=== PATIENT | male | born 1995 | race Caucasian/White ===

== ENCOUNTER 2019-03-15 08:30 | Outpatient (CLI) | payer BC ==
--- NOTE | 2019-03-15 10:48 | ULT ---
ULTRASOUND ABDOMEN LIMITED: (RIGHT UPPER QUADRANT) DATE: 03/15/19 HISTORY: 23-year-old male with nausea, emesis, and right upper quadrant abdominal pain. FINDINGS: Gallbladder: Normal wall thickness. No gallstones or sludge. No pericholecystic fluid. Common duct: 3 mm. Liver: Diffusely increased parenchymal echogenicity without significant signal dropout of deep weston . This could either be normal or could represent fatty liver. Pancreas: Poorly visualized. Right kidney: Normal. IMPRESSION: 1. No sonographic evidence of cholelithiasis or acute cholecystitis. 2. Questionable hepatic steatosis. 3. Otherwise normal. JN R POS: TPC
== END 2019-03-15 08:31 | disposition home or self-care (01) ==
LOC: BICULT 08:30
PROVIDERS: ATTEND Internal Medicine
DX: R10.11 Right upper quadrant pain (principal); R11.2 Nausea with vomiting, unspecified; K52.9 Noninfective gastroenteritis and colitis, unspecified
CPT/HCPCS: 93975

== ENCOUNTER 2019-03-15 13:42 | Outpatient (CLI) | payer BC ==
[2019-03-15] MEDS ORDERED: Magnevist 469MG/ML 20 ML VIAL ONE (15:38)
--- NOTE | 2019-03-15 16:36 | MRI ---
Brain MRI with and without contrast: 03/15/2019 COMPARISON: 01/24/2016 HISTORY: Seizure, vomiting TECHNIQUE: Multiplanar multisequence MR imaging of the brain obtained with and without contrast using a seizure protocol FINDINGS: The diffusion weighted imaging demonstrates no evidence for acute infarction. Mild mucosal thickening of the left maxillary sinus. Regional bone marrow signal intensity appears wi thin normal limits. No midline shift or mass effect. No ventricular enlargement. Hippocampi demonstrate a symmetric unremarkable appearance. Arterial flow voids at the axial level of the skull base appear grossly unremarkable on the T2-weighted imaging. Postcontrast imaging is unremarkable. IMPRESSION: Unremarkable contrast enhanced brain MRI.
== END 2019-03-15 13:43 | disposition home or self-care (01) ==
LOC: BICMRI 13:42
PROVIDERS: ATTEND Family Medicine
DX: G40.209 Localization-related (focal) (partial) symptomatic epilepsy and epileptic syndromes with complex partial seizures, not intractable, without status epilepticus (principal)
CPT/HCPCS: 70553; A9579

== ENCOUNTER 2020-03-05 00:58 | Emergency (ER) | payer SELFPAY ==
[2020-03-05 01:54] LABS: #Basophils 0.1 thou/uL (0.0-0.2); #Eosinphils 0.2 thou/uL (0.0-0.7); #Lymphocytes 3.3 thou/uL (1.20-3.40); #Monocytes 0.6 thou/uL (0.11-0.59); #Neutrophils 3.5 thou/uL (1.40-6.50); %Basophils 1.4 % (0.0-1.0); %Eosinophils 2.8 % (0.0-10.0); %Lymphocytes 42.4 % (21.0-51.0); %Monocytes 8.1 % (0.0-10.0); %Neutrophils 45.2 % (42.0-75.0); Hemoglobin 15.4 g/dL (14.0-18.0); Mean Corpuscular HGB CONC 34.2 g/dL (32.0-36.0); Mean Corpuscular Hemoglobin 31.3 pg (27.0-31.0); Mean Corpuscular Volume 91.6 fL (78.0-98.0); Mean Platelet Volume 8.7 fL (7.4-10.4); Platelet Count 171 thou/uL (130-400); Red Blood Cell (RBC) Count 4.91 mill/uL (4.70-6.10); White Blood Cell (WBC) Count 7.8 thou/uL (4.8-10.8)
[2020-03-05 02:15] LABS: ALT (SGPT) 282 U/L (8-55); AST (SGOT) 354 U/L (5-34); Albumin 3.7 g/dL (3.5-5.0); Alkaline Phosphatase 123 U/L (40-110); Anion Gap 16 mmol/L (10-20); BUN (Urea Nitrogen) 18 mg/dL (8.9-20.6); Bilirubin, Total 0.7 mg/dL (0.2-1.2); Calc. Creatinine Clearance 0 mL/min (70-130); Calcium 8.5 mg/dL (7.8-10.44); Carbon Dioxide 28 mmol/L (22-29); Chloride 104 mmol/L (98-107); Estimated GFR-MDRD 89; Globulin 2.7 g/dL (2.4-3.5); Glucose 100 mg/dL (70-105); Potassium 3.3 mmol/L (3.5-5.1); Protein, Total 6.4 g/dL (6.0-8.3); Sodium 145 mmol/L (136-145)
[2020-03-05 02:39] LABS: Bilirubin Negative (Negative); Blood, Urine Negative (Negative); Clarity Clear (Clear); Glucose, Urine (Dipstick) Normal (Negative); Ketone, Urine Negative (Negative); Leukocyte Negative Leu/uL (Negative); Nitrite Negative (Negative); Protein, Urine (Dipstick) Negative (Neg-Trace); Urobilinogen Normal mg/dL (Less than 2); pH, Urine 6.5 (5.0-9.0)
[2020-03-05 02:52] LABS: Amphetamine Not Detected (NotDetected); Barbiturates Screen Not Detected (NotDetected); Benzodiazepine Screen Not Detected (NotDetected); Cocaine Metabolite Screen Not Detected (NotDetected); Medtox Control Line Valid? VALID (VALID); Medtox Reader # READER 1; Methadone Not Detected (NotDetected); Methamphetamine Not Detected (NotDetected); Opiate Screen Not Detected (NotDetected); Oxycodone Screen Not Detected (NotDetected); Phencyclidine (PCP) Not Detected (NotDetected); THC/Cannabinoid Screen Not Detected (NotDetected); Tricyclic Screen Not Detected (NotDetected)
[2020-03-05 03:26] LABS: Acetaminophen Less than 6.0 mcg/mL (10.0-30.0); Alcohol 386 mg/dL (Less than 10); Salicylate Less than 8.0 mg/dL (15.0-30.0)
--- NOTE | 2020-03-05 07:59 | RAD ---
Exam: Right knee 4 views: HISTORY: Injury, seizure COMPARISON: None FINDINGS: No evidence for fracture, dislocation, or other significant acute osseous abnormality. IMPRESSION: No significant acute process.
--- NOTE | 2020-03-05 07:59 | RAD ---
Exam: AP pelvis one view: HISTORY: Injury history of seizure COMPARISON: None FINDINGS: No evidence for fracture, dislocation, or other significant acute osseous abnormality. IMPRESSION: No significant acute process.
--- NOTE | 2020-03-05 08:08 | RAD ---
PORTABLE CHEST: History: Injury. Seizure. FINDINGS: Lungs appear clear of infiltrate. Heart and mediastinum unremarkable. Osseous structures appear intac t. IMPRESSION: No acute process. POS: AGW
--- NOTE | 2020-03-05 08:12 | CT ---
PRELIMINARY REPORT/[facility]/EMERGENCY AFTER HOURS PROCEDURE: EXAM: CT Head Without Intravenous Contrast. CLINICAL HISTORY: ER 4... AMS S/P SEIZURE ON TUESDAY. FAMILY REPORTS HX OF EPILEPSY. PT WAS UNABLE TO ORIENT TO SELF, OT HERS, OR PLACE EARLIER TODAY. PER FAMILY PT'S AMS WORSENING SINCE CONCUSSION. TECHNIQUE: Axial computed tomography images of the head/brain without intravenous contrast. COMPARISON: None provided. FINDINGS:The ventricles and subarachnoid spaces are normal. No abnormal areas of attenuation are seen in the brain parenchyma. Normal hedrick- white matter interface. There is no acute intracranial hemorrhage or mass effect. Orbits are negative. On bone windows, no acute finding is seen. Mastoid air cells and middle ears are clear. 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 IMPRESSION: Negative unenhanced CT of the head. ELECTRONICALLY SIGNED BY: Ed Espinal MD Mar 05, 2020 2:04:48 AM LINING CEMENTER This report is intended for review by the ordering physician only, in accordance of law. If you recei ve this report in error, please call [facility] at [phone]. FINAL REPORT CT HEAD: INDICATION: Seizure. IMPRESSION: No acute intracranial abnormality. I am in agreement with the preliminary report issued by [facility]. POS: AGW
--- NOTE | 2020-03-05 08:14 | CT ---
PRELIMINARY REPORT/[facility]/EMERGENCY AFTER HOURS PROCEDURE: EXAM: CT Cervical Spine Without Intravenous Contrast. CLINICAL HISTORY: ER 4... AMS S/P SEIZURE ON TUESDAY. FAMILY REPORTS HX OF EPILEPSY. PT WAS UNABLE TO ORIENT TO SELF, OT HERS, OR PLACE EARLIER TODAY. PER FAMILY PT'S AMS WORSENING SINCE CONCUSSION. TECHNIQUE: Axial computed tomography images of the cervical spine without intravenous contrast. Sagittal and cor onal reformations performed. COMPARISON: None provided. FINDINGS: There are 7 cervical vertebra with mild straightening on the sagittal reformats. The verte bral body heights are maintained. The facets, transverse and spinous processes are intact. Central spinal canal and neuroforamina are patent. The precervical soft tissues are normal. The odontoid lateral mass interval is bilaterally asymmetrical, greater on the left relative to that seen on the right (13/3; 17/400). In addition, there is. Slight right lateral subluxation of the la teral masses of C1 relative to the lateral masses of C2 (19/400). The joint spaces between the later al masses of C1 and C2 are symmetrical in thickness. There is no precervical soft tissue abnormality , and there is no epidural or intraspinal soft tissue abnormality. The atlantooccipital articulation s are normal. IMPRESSION: 1. There is imperfect alignment between the atlas and the C2 element, detailed above. 2. This most likely represents anatomic development of variation. 3. No fractures. COMMENT: If the patient has significant upper cervical pain, then cervical collar and follow-up MRI w ould be suggested. ELECTRONICALLY SIGNED BY: Ed Espinal MD Mar 05, 2020 2:23:13 AM HORTICULTURE/FLORICULTURE TEACHER This report is intended for review by the ordering physician only, in accordance of law. If you recei ve this report in error, please call [facility] at [phone]. FINAL REPORT CT CERVICAL SPINE: No evidence of fracture. Slight asymmetry of the odontoid lateral mass interval which may be congenit al. C1 and C2 alignment is otherwise normal. No evidence of fracture or other acute abnormality. I am in agreement with the preliminary report issued by [facility]. POS: ZAIDA
--- NOTE | 2020-03-05 08:16 | CT ---
PRELIMINARY REPORT/[facility]/EMERGENCY AFTER HOURS PROCEDURE: EXAM: CT Thoracic Spine Without Intravenous Contrast. CLINICAL HISTORY: ER 4... AMS S/P SEIZURE ON TUESDAY. FAMILY REPORTS HX OF EPILEPSY. PT WAS UNABLE TO ORIENT TO SELF, OT HERS, OR PLACE EARLIER TODAY. PER FAMILY PT'S AMS WORSENING SINCE CONCUSSION. TECHNIQUE: Axial computed tomography images of the thoracic spine without intravenous contrast. Sagittal and cor onal reformations performed. CONTRAST: Without COMPARISON: None provided. FINDINGS: There are 12 pairs of ribs. A gentle S-shaped curvature of the thoracic spine is present. Overall there is a normal kyphosis. There is modest wedge-shape to vertebral bodies T12-L1, compati ble with developmental variation. Otherwise the vertebral body heights are maintained. No cortical step-off, fracture line or this subluxation is seen. The transverse and spinous processes are intact. Visualized portions of ribs are normal. IMPRESSION: 1. No acute abnormality. No fracture or subluxation. 2. Mild S-shaped scoliosis. 3. Developmental wedge shape of several adjacent vertebral bodies.. ELECTRONICALLY SIGNED BY: Ed Espinal MD Mar 05, 2020 2:31:16 AM EMERGENCY MEDICAL SERVICE MANAGER This report is intended for review by the ordering physician only, in accordance of law. If you recei ve this report in error, please call [facility] at [phone]. FINAL REPORT CT THORACIC SPINE: Thoracic vertebra maintain normal height and alignment in the sagittal projection. Slight scoliotic c urvature with convexity to the right. No fracture or acute abnormality identified. I am in agreement with the preliminary report issued by [facility]. POS: ZAIDA
== END 2020-03-05 04:12 | disposition home or self-care (01) ==
LOC: ERS 00:58
DX: S06.0X0A Concussion without loss of consciousness, initial encounter (principal); F10.129 Alcohol abuse with intoxication, unspecified; G40.909 Epilepsy, unspecified, not intractable, without status epilepticus; F41.9 Anxiety disorder, unspecified; F32.9 Major depressive disorder, single episode, unspecified; F17.210 Nicotine dependence, cigarettes, uncomplicated; G43.909 Migraine, unspecified, not intractable, without status migrainosus; Z79.899 Other long term (current) drug therapy; X58.XXXA Exposure to other specified factors, initial encounter
CPT/HCPCS: 36415; 70450; 71045; 72125; 72128; 72170; 80053; 80177; 80306; 80307; 81003; 85025

== ENCOUNTER 2020-04-02 21:01 | Inpatient (IN) | payer SELFPAY ==
[2020-04-02] MEDS ORDERED: Lorazepam 2 MG/ML VIAL ONE (21:41)
[2020-04-02 21:42] LABS: #Basophils 0.2 thou/uL (0.0-0.2); #Eosinphils 0.5 thou/uL (0.0-0.7); #Monocytes 0.9 thou/uL (0.11-0.59); #Neutrophils 3.9 thou/uL (1.40-6.50); %Basophils 1.6 % (0.0-1.0); %Eosinophils 5.1 % (0.0-10.0); %Lymphocytes 42.5 % (21.0-51.0); %Monocytes 9.5 % (0.0-10.0); %Neutrophils 41.2 % (42.0-75.0); Hemoglobin 16.4 g/dL (14.0-18.0); Mean Corpuscular HGB CONC 33.5 g/dL (32.0-36.0); Mean Corpuscular Hemoglobin 31.4 pg (27.0-31.0); Mean Corpuscular Volume 93.7 fL (78.0-98.0); Mean Platelet Volume 8.3 fL (7.4-10.4); Platelet Count 311 thou/uL (130-400); RBC Distribution Width 13.3 % (11.5-14.5); Red Blood Cell (RBC) Count 5.24 mill/uL (4.70-6.10); White Blood Cell (WBC) Count 9.4 thou/uL (4.8-10.8)
[2020-04-02] MEDS ORDERED: Multivitamins, Adult 10 ML, Thiamine HCl 100 MG, Folic Acid 1 MG in Dextrose 5 %-0.45 %... IV SCH (22:00)
[2020-04-02 22:05] LABS: ALT (SGPT) 45 U/L (8-55); AST (SGOT) 28 U/L (5-34); Acetaminophen Less than 6.0 mcg/mL (10.0-30.0); Albumin 4.3 g/dL (3.5-5.0); Alcohol 298 mg/dL (Less than 10); Alkaline Phosphatase 91 U/L (40-110); Anion Gap 19 mmol/L (10-20); BUN (Urea Nitrogen) 10 mg/dL (8.9-20.6); Bilirubin, Total 0.3 mg/dL (0.2-1.2); Calc. Creatinine Clearance 0 mL/min (70-130); Calcium 9.1 mg/dL (7.8-10.44); Carbon Dioxide 24 mmol/L (22-29); Chloride 105 mmol/L (98-107); Glucose 88 mg/dL (70-105); Magnesium 2.5 mg/dL (1.6-2.6); Potassium 3.9 mmol/L (3.5-5.1); Protein, Total 7.3 g/dL (6.0-8.3); Salicylate Less than 8.0 mg/dL (15.0-30.0); Sodium 144 mmol/L (136-145)
[2020-04-02] MEDS ORDERED: Magnesium 2 GM/50 ML BAG (IN WATER) ONE (23:01)
[2020-04-02] MEDS ORDERED: Metoclopramide HCl 10 MG/2 ML VIAL ONE (23:02)
[2020-04-02] MEDS ORDERED: diphenhydrAMINE 50 MG/ML VIAL ONE (23:02)
[2020-04-02] MEDS ORDERED: Ketorolac Tromethamine 30 MG/ML VIAL ONE (23:02)
[2020-04-03] MEDS ORDERED: Nicotine 21 MG PATCH TOP SCH (00:15)
[2020-04-03] MEDS ORDERED: Acetaminophen 325 MG TAB PO PRN (00:31)
--- NOTE | 2020-04-03 01:30 | HP ---
REASON FOR ADMISSION: Hallucination and suicidal ideation. Also attempting to detox from alcohol. HISTORY OF PRESENT ILLNESS: This is a 24-year-old male patient who is known to be an alcoholic, presented to the ER reporting hallucination for the past week or 2. He hears members of his family who are not there. He admits that he drank rubbing alcohol approximately a week ago. In a moment of weakness, he does state that he wants to end his life. He does state that he stopped drinking any alcohol a week ago. He does complain of headaches. He did receive IV Benadryl and Toradol. Currently, he is asleep, but easily arousable. Does not appear in distress. PAST MEDICAL HISTORY: 1. Migraines. 2. Asthma. 3. Seizures. SOCIAL HISTORY: He drinks on a daily basis, more than 10 drinks per day. He is a former drug user. He is current smoker, one pack a day. FAMILY HISTORY: Unable to obtain. He is currently very sleepy. REVIEW OF SYSTEMS: Unable to obtain. Currently very sleepy. PHYSICAL EXAMINATION: GENERAL: He is sleepy, easily arousable. VITAL SIGNS: His blood pressure is 105/64, pulse is 84, saturating 96% on room air. HEENT: Head is nontraumatic, normocephalic. Pupils equal, reactive. Extraocular movements are intact. Nonicteric sclerae. Well-injected conjunctivae. Oral mucosa normal. Nasal mucosa normal. NECK: Supple. No adenopathy. No murmur. Thyroid is not palpable. Trachea is midline. No supraclavicular adenopathy. HEART: S1, S2 regular. No murmur. No gallops. No friction rubs. No displacement of PMI. LUNGS: Clear to auscultation bilaterally. No wheezes. No rhonchi. No crackles. Bowel sounds are positive. Nontender abdomen. No hepatosplenomegaly. EXTREMITIES: No lower extremity edema. No cyanosis. NEUROLOGIC: Unable to fully perform. He is moving all 4 extremities. Cranial nerves appear to be intact. LABORATORY DATA: Blood work shows a WBC of 9.4, hemoglobin 16.4, platelets of 311. Sodium 144, potassium 3.9, BUN of 10, creatinine of 1. Urine tox screen shows Tylenol level less than 6, salicylate less than 8. Alcohol level 298. ASSESSMENT/PLAN: This is a 24-year-old male patient who is an alcoholic, presenting with suicidal ideation and high alcohol level, currently not in withdrawal. Maybe, he will go into withdrawal in 24 to 48 hours. Until then, we will monitor him on Med-Surg and we will hydrate him with IV fluids. He did receive a banana bag. He will be on thiamine, folic acid, multivitamin on a daily basis. He will be on IV fluids. We will monitor his electrolytes and when he is stable, consultation with [facility] is warranted for evaluation and placement. Job ID: [id number]
[2020-04-03] MEDS: Sodium Chloride 0.9% 1,000 ML IV SCH ×2 (02:41→13:07)
[2020-04-03 03:47] VITALS: BMI 29.6
[2020-04-03] MEDS: Lorazepam 2 MG/ML VIAL SLOW IVP PRN ×2 (06:13→15:43)
[2020-04-03 08:23] LABS: SARS-CoV-2 MS2 Positive; SARS-CoV-2 N Gene Negative; SARS-CoV-2 S Gene Negative; SARS-CoV-2 by NAA Not Detected (NotDetected); SARS-CoV-2 orf1ab Negative
[2020-04-03] MEDS ORDERED: FLU VACC QS2020-21(6MOS UP)/PF 60 MCG/0.5 ML SYRINGE IM ONE (09:00)
[2020-04-03] MEDS: Folic Acid 1 MG TAB PO SCH (09:22)
[2020-04-03] MEDS: Multivitamin W/ Minerals 1 TAB PO SCH (09:22)
[2020-04-03] MEDS ORDERED: levETIRAcetam 500 MG TAB PO SCH (10:00)
[2020-04-03] MEDS ORDERED: Nicotine 21 MG PATCH TD SCH (10:00)
[2020-04-03] MEDS ORDERED: Ondansetron ODT 4 MG TAB PO PRN (19:52)
[2020-04-03] MEDS: Ondansetron PF 4 MG/2 ML Vial IVP PRN (20:01)
[2020-04-04] MEDS: Lorazepam 2 MG/ML VIAL SLOW IVP PRN (00:10)
[2020-04-04] MEDS: Ondansetron PF 4 MG/2 ML Vial IVP PRN (03:02)
[2020-04-04] MEDS: Sodium Chloride 0.9% 1,000 ML IV SCH (03:03)
[2020-04-04 06:15] LABS: #Basophils 0.1 thou/uL (0.0-0.2); #Eosinphils 0.4 thou/uL (0.0-0.7); #Monocytes 0.8 thou/uL (0.11-0.59); #Neutrophils 4.7 thou/uL (1.40-6.50); %Basophils 1.1 % (0.0-1.0); %Eosinophils 4.5 % (0.0-10.0); %Lymphocytes 25.2 % (21.0-51.0); %Monocytes 10.1 % (0.0-10.0); %Neutrophils 59.1 % (42.0-75.0); Hemoglobin 14.2 g/dL (14.0-18.0); Mean Corpuscular HGB CONC 33.6 g/dL (32.0-36.0); Mean Corpuscular Hemoglobin 31.2 pg (27.0-31.0); Mean Corpuscular Volume 92.9 fL (78.0-98.0); Mean Platelet Volume 8.5 fL (7.4-10.4); Platelet Count 233 thou/uL (130-400); RBC Distribution Width 12.9 % (11.5-14.5); Red Blood Cell (RBC) Count 4.56 mill/uL (4.70-6.10); White Blood Cell (WBC) Count 7.9 thou/uL (4.8-10.8)
[2020-04-04 06:34] LABS: Anion Gap 14 mmol/L (10-20); BUN (Urea Nitrogen) 13 mg/dL (8.9-20.6); Calc. Creatinine Clearance 166 mL/min (70-130); Calcium 7.8 mg/dL (7.8-10.44); Carbon Dioxide 23 mmol/L (22-29); Chloride 107 mmol/L (98-107); Glucose 106 mg/dL (70-105); Potassium 3.5 mmol/L (3.5-5.1); Sodium 140 mmol/L (136-145)
[2020-04-04 07:55] VITALS: TEMP 98.5
[2020-04-04] MEDS: Multivitamin W/ Minerals 1 TAB PO SCH (08:04)
[2020-04-04] MEDS: Folic Acid 1 MG TAB PO SCH (08:04)
[2020-04-04] MEDS ORDERED: levETIRAcetam 500 MG TAB PO SCH (09:00)
[2020-04-04] MEDS ORDERED: Nicotine 21 MG PATCH TD SCH (09:00)
[2020-04-04 11:55] VITALS: BP 139/79
--- NOTE | 2020-04-05 11:26 | EKG ---
Test Reason : Blood Pressure : / mmHG Vent. Rate : 095 BPM Atrial Rate : 095 BPM P-R Int : 140 ms QRS Dur : 090 ms QT Int : 360 ms P-R-T Axes : 042 -08 031 degrees QTc Int : 452 ms Normal sinus rhythm Minimal voltage criteria for LVH, may be normal variant Cannot rule out Anterior infarct , age undetermined Abnormal ECG Confirmed by TEMO THOMSON ([id number]), make up editor LEANNE CARRILLO ([id number]) on 04/05/2020 11:25:43 AM Referred By: Confirmed By:TEMO THOMSON
--- NOTE | 2020-04-06 13:28 | DIS ---
DATE OF ADMISSION: 04/03/2020 DATE OF DISCHARGE: 04/04/2020 DISCHARGE DIAGNOSES: 1. Hallucinations. 2. Alcohol intoxication. 3. Suicidal ideation. 4. History of migraine. 5. History of seizures. 6. History of asthma. DISCHARGE MEDICATIONS: The patient will continue his home medications of; 1. Keppra 1750 mg orally daily. 2. Librium 25 mg orally t.i.d. as needed for alcohol detox. 3. Clonidine 0.1 mg orally twice daily as needed for hypertension. 4. Lorazepam 1 mg q.6 hours as needed for anxiety. 5. Zoloft 50 mg orally daily. HISTORY OF PRESENT ILLNESS AND HOSPITAL COURSE: The patient is a 24-year-old male with past medical history of migraines, seizures, asthma, and alcohol abuse, who was seen in the ER for hallucinations. The patient stated that he wanted to end his life. He admitted to stopping drinking 2 weeks ago, however, his alcohol level was elevated in the ER. The patient was monitored for 24 hours and his condition was stable clinically. Job ID: [id number]
--- NOTE | 2020-04-07 03:40 | PQF ---
CLINICAL DOCUMENTATION CLARIFICATION FORM: Dear : Kylie Tran Date / Time: 04/07/2020 Please exercise your independent, professional judgment in responding to the clarification form. Clinical indicators are provided on the bottom of this form for your review In your clinical opinion based on clinical findings below, can you please identify the etiology of Hallucination if: Please check appropriate box(es): [ > ] Alcohol-Induced Disorders [ ] Psychosis, please specify: [ ] Other diagnosis, please specify [ ] Unable to determine Physician Signature: Date/Time: For continuity of documentation, please document condition throughout progress notes and discharge summary. Thank You. To be completed by CDI/Coding staff for physician review: Present Clinical Indicators - Signs / Symptoms / Labs Results and Location in Medical Record [X] Plasma Alcohol 298 Laboratory 04/03 [X] BP 95/58, Pulse 77, Resp 16, Temp 97.7 Vital sign 04/03 [X] Hallucination and suicidal ideation. Also attempting to detox from alcohol H&P p1 04/03 Dr Hernandez [X] He drinks on daily basis, more than 10 drinks per day H&P p1 04/03 Dr Hernandez [X] pt is an alcoholic, presenting with suicidal ideation and high alcohol level H&P p2 04/03 Dr Hernandez Present Risk Factors Results and Location in Medical Record [X] Seizures H&P p1 04/03 Dr Hernandez [X] Migraine H&P p1 04/03 Dr Hernandez [X] Smoker H&P p1 04/03 Dr Hernandez Present Treatments Results and Location in Medical Record [X] IV Ativan 2 mg MAR 04/02 [X] IV Magnesium sulfate 2 gm JUL 11 [X] IV Multivitamins 10ml/Thimaine 100 mg/ Folic aidc 1mg JUL 11 [X] IVF NS1L JUL 11 [X] Thiamine HCL 100 mg JUL 11 [X] Banana Bag IV HP 04/03 CDS/Mock Up Builder Signature: Naomi Goodwin Phone #: ext [phone] Date/Time: 04/07/2020 This is a permanent part of the Medical Record [facility]
== END 2020-04-04 11:04 | DRG 897 ==
LOC: ERS 21:01 → T4-A 04-03 01:22
PROVIDERS: ADMIT Internal Medicine; ATTEND Internal Medicine
PROC: HZ2ZZZZ Detoxification Services for Substance Abuse Treatment (ICD-10-PCS; principal; 2020-04-03)
DX: F10.251 Alcohol dependence with alcohol-induced psychotic disorder with hallucinations (principal); R45.851 Suicidal ideations; F10.229 Alcohol dependence with intoxication, unspecified; Y90.8 Blood alcohol level of 240 mg/100 ml or more; G43.909 Migraine, unspecified, not intractable, without status migrainosus; Z23 Encounter for immunization; J45.909 Unspecified asthma, uncomplicated; G40.909 Epilepsy, unspecified, not intractable, without status epilepticus; Z20.828 Contact with and (suspected) exposure to other viral communicable diseases; F17.210 Nicotine dependence, cigarettes, uncomplicated; Z79.899 Other long term (current) drug therapy
CPT/HCPCS: 36415; 80048; 80053; 80307; 83735; 84443; 85025; 87635; 93005; J1200; J1885; J2060; J2405; J2765; J3411; J3475; J7042; Q0162; U0003

== ENCOUNTER 2020-07-05 17:42 | Inpatient (IN) | payer SELFPAY ==
[2020-07-05 19:12] LABS: Hemoglobin 10.4 g/dL (14.0-18.0); Mean Corpuscular HGB CONC 32.7 g/dL (32.0-36.0); Mean Corpuscular Hemoglobin 26.9 pg (27.0-31.0); Mean Corpuscular Volume 82.3 fL (78.0-98.0); Mean Platelet Volume 5.7 fL (7.4-10.4); Platelet Count 147 thou/uL (130-400); RBC Distribution Width 22.4 % (11.5-14.5); Red Blood Cell (RBC) Count 3.87 mill/uL (4.70-6.10); White Blood Cell (WBC) Count 8.4 thou/uL (4.8-10.8)
[2020-07-05 19:16] LABS: ALT (SGPT) 94 U/L (8-55); AST (SGOT) 246 U/L (5-34); Albumin 2.7 g/dL (3.5-5.0); Alkaline Phosphatase 245 U/L (40-110); Anion Gap 15 mmol/L (10-20); BUN (Urea Nitrogen) 4 mg/dL (8.9-20.6); Calc. Creatinine Clearance 0 mL/min (70-130); Calcium 7.5 mg/dL (7.8-10.44); Carbon Dioxide 23 mmol/L (22-29); Chloride 104 mmol/L (98-107); Globulin 3.1 g/dL (2.4-3.5); Glucose 121 mg/dL (70-105); Protein, Total 5.8 g/dL (6.0-8.3); Sodium 139 mmol/L (136-145)
[2020-07-05 19:23] LABS: Potassium 2.9 mmol/L (3.5-5.1)
[2020-07-05 19:30] LABS: Anisocytosis MODERATE=16-30 cells (100X) (0-5/hpf); Band 3 % (5-11); Eosinophils 2 % (0-10); Hypochromia SLIGHT = 6-15 cells (100X) (0-5/hpf); Lymphocytes 26 % (21-51); MDiff Complete? YES; Monocytes 4 % (0-10); Neutrophil 63 % (42-75); Platelet Morphology Comment Appears Adequate; Polychromasia SLIGHT = 2-3 cells (100X) (0-2/hpf); Reactive Lymphocytes 1 % (0-10); Target Cells SLIGHT = 2-5 cells (100X) (0-1/hpf); Tear Drops SLIGHT = 2-5 cells (100X) (0-1/hpf)
[2020-07-05] MEDS ORDERED: Multivitamins, Adult 10 ML, Thiamine HCl 100 MG, Folic Acid 1 MG in Dextrose 5 %-0.45 %... IV SCH (20:00)
[2020-07-05 20:36] LABS: AST (SGOT) 243 U/L (5-34); Albumin 2.5 g/dL (3.5-5.0); Alcohol 220 mg/dL (Less than 10); Alkaline Phosphatase 245 U/L (40-110); Bilirubin, Direct 3.2 mg/dL (0.1-0.3); Bilirubin, Total 3.7 mg/dL (0.2-1.2); Protein, Total 7.1 g/dL (6.0-8.3)
[2020-07-05 21:09] LABS: ALT (SGPT) 95 U/L (8-55)
[2020-07-05] MEDS ORDERED: Albuterol Sulfate 2.5 mg/3 ml Neb NEB PRN (21:43)
[2020-07-05] MEDS ORDERED: Magnesium Oxide 400 MG TAB PO SCH (22:00)
[2020-07-05] MEDS ORDERED: Potassium Chloride 20 MEQ in Premix Bag 1 BAG IVPB SCH (22:00)
[2020-07-05] MEDS ORDERED: Potassium Chloride 20 MEQ TAB PO SCH (22:00)
[2020-07-06 00:18] VITALS: BMI 32.7
[2020-07-06] MEDS ORDERED: Diazepam 5 MG TAB PO PRN (03:00)
[2020-07-06] MEDS ORDERED: Diazepam 5 MG TAB PO SCH (03:15)
[2020-07-06 04:24] LABS: INR-International Normal Ratio 1.2; PTT 36.8 sec (22.9-36.1); Prothrombin Time 15.8 sec (12.0-14.7)
[2020-07-06 04:40] LABS: ALT (SGPT) 84 U/L (8-55); AST (SGOT) 216 U/L (5-34); Albumin 2.4 g/dL (3.5-5.0); Alkaline Phosphatase 215 U/L (40-110); Anion Gap 12 mmol/L (10-20); BUN (Urea Nitrogen) 4 mg/dL (8.9-20.6); Bilirubin, Total 3.8 mg/dL (0.2-1.2); Calc. Creatinine Clearance 211 mL/min (70-130); Calcium 7.3 mg/dL (7.8-10.44); Carbon Dioxide 23 mmol/L (22-29); Chloride 108 mmol/L (98-107); Globulin 2.6 g/dL (2.4-3.5); Glucose 85 mg/dL (70-105); Magnesium 1.8 mg/dL (1.6-2.6); Potassium 3.2 mmol/L (3.5-5.1); Sodium 140 mmol/L (136-145)
[2020-07-06 04:46] LABS: SARS-CoV-2 PCR by NAA Not Detected (NotDetected)
[2020-07-06 05:12] LABS: Eosinophils 5 % (0-10); Hemoglobin 9.4 g/dL (14.0-18.0); Lymphocytes 29 % (21-51); MDiff Complete? YES; Mean Corpuscular HGB CONC 33.8 g/dL (32.0-36.0); Mean Corpuscular Hemoglobin 27.7 pg (27.0-31.0); Mean Platelet Volume 5.6 fL (7.4-10.4); Monocytes 2 % (0-10); Neutrophil 64 % (42-75); Platelet Count 142 thou/uL (130-400); Platelet Morphology Comment Appears Adequate; RBC Distribution Width 22.6 % (11.5-14.5); Red Blood Cell (RBC) Count 3.38 mill/uL (4.70-6.10); White Blood Cell (WBC) Count 7.2 thou/uL (4.8-10.8)
[2020-07-06] MEDS ORDERED: Potassium Chloride 20 MEQ TAB PO SCH ×2 (07:15→10:00)
[2020-07-06] MEDS: levETIRAcetam 500 MG TAB PO SCH (07:56)
[2020-07-06] MEDS: Multivitamin W/ Minerals 1 TAB PO SCH (07:56)
[2020-07-06] MEDS: Folic Acid 1 MG TAB PO SCH (07:56)
[2020-07-06] MEDS: Ondansetron PF 4 MG/2 ML Vial IVP PRN ×2 (07:57→13:32)
[2020-07-06] MEDS ORDERED: levETIRAcetam 500 mg/5 ml Oral Solution PO SCH (09:00)
[2020-07-06] MEDS ORDERED: Multivitamins, Adult 10 ML, Thiamine HCl 100 MG, Folic Acid 1 MG in Dextrose 5 %-0.45 %... IV SCH (09:00)
[2020-07-06] MEDS: Acetaminophen 325 MG TAB PO PRN (18:04)
[2020-07-06] MEDS: hydrOXYzine Pamoate 25 mg Capsule PO SCH (20:24)
[2020-07-06] MEDS: traZODone HCl 50 MG TAB PO SCH (20:24)
[2020-07-06] MEDS ORDERED: FLU VACC QS2020-21(6MOS UP)/PF 60 MCG/0.5 ML SYRINGE IM ONE (21:00)
[2020-07-07] MEDS: Ondansetron PF 4 MG/2 ML Vial IVP PRN ×2 (03:48→20:05)
[2020-07-07] MEDS ORDERED: Diazepam 5 MG TAB PO PRN (04:00)
[2020-07-07 06:23] LABS: Hemoglobin 10.5 g/dL (14.0-18.0); Mean Corpuscular HGB CONC 32.9 g/dL (32.0-36.0); Mean Corpuscular Hemoglobin 27.8 pg (27.0-31.0); Mean Corpuscular Volume 84.5 fL (78.0-98.0); RBC Distribution Width 23.2 % (11.5-14.5); Red Blood Cell (RBC) Count 3.76 mill/uL (4.70-6.10)
[2020-07-07 06:34] LABS: ALT (SGPT) 91 U/L (8-55); AST (SGOT) 239 U/L (5-34); Albumin 2.6 g/dL (3.5-5.0); Alkaline Phosphatase 227 U/L (40-110); Anion Gap 12 mmol/L (10-20); BUN (Urea Nitrogen) Less than 4 mg/dL (8.9-20.6); Calc. Creatinine Clearance 189 mL/min (70-130); Calcium 7.7 mg/dL (7.8-10.44); Carbon Dioxide 27 mmol/L (22-29); Chloride 105 mmol/L (98-107); Globulin 2.9 g/dL (2.4-3.5); Glucose 96 mg/dL (70-105); Iron 116 ug/dL (65-175); Iron Binding Capacity, Total 130 mcg/dL (261-462); Magnesium 1.6 mg/dL (1.6-2.6); Potassium 3.1 mmol/L (3.5-5.1); Protein, Total 5.5 g/dL (6.0-8.3); Sodium 141 mmol/L (136-145)
[2020-07-07 06:38] LABS: #Basophils 0.1 thou/uL (0.0-0.2); #Eosinphils 0.2 thou/uL (0.0-0.7); #Lymphocytes 2.8 thou/uL (1.20-3.40); #Monocytes 0.6 thou/uL (0.11-0.59); #Neutrophils 5.6 thou/uL (1.40-6.50); %Basophils 0.7 % (0.0-1.0); %Eosinophils 1.9 % (0.0-10.0); %Lymphocytes 30.3 % (21.0-51.0); %Monocytes 6.2 % (0.0-10.0); %Neutrophils 60.9 % (42.0-75.0); Hypochromia SLIGHT = 6-15 cells (100X) (0-5/hpf); Lymphocytes 27 % (21-51); MDiff Complete? YES; Mean Platelet Volume 6.1 fL (7.4-10.4); Monocytes 13 % (0-10); Neutrophil 59 % (42-75); Platelet Count 142 thou/uL (130-400); Platelet Morphology Comment Appears Adequate; Reactive Lymphocytes 1 % (0-10); Target Cells SLIGHT = 2-5 cells (100X) (0-1/hpf); White Blood Cell (WBC) Count 9.2 thou/uL (4.8-10.8)
[2020-07-07 07:05] LABS: HBCM Index 0.08 S/CO (0-0.79); HBSAg Index 0.25 S/CO (0-0.99); Hep A IgM AB Non-Reactive (NonReactive); Hep A IgM S/CO 0.15 S/CO (0-0.79); Hep B Surf Ag Non-Reactive S/CO (NonReactive); Hep C IgG Ab Non-Reactive (NonReactive); Hepatitis B Core IgM Abs Non-Reactive (NonReactive)
[2020-07-07 07:28] LABS: Ferritin 2227.45 ng/mL (22-322)
[2020-07-07] MEDS: hydrOXYzine Pamoate 25 mg Capsule PO SCH ×3 (08:59→20:10)
[2020-07-07] MEDS: Multivitamin W/ Minerals 1 TAB PO SCH (08:59)
[2020-07-07] MEDS ORDERED: traZODone HCl 50 MG TAB PO SCH (09:00)
[2020-07-07] MEDS: Magnesium Oxide 400 MG TAB PO SCH (09:00)
[2020-07-07] MEDS: levETIRAcetam 500 MG TAB PO SCH (09:00)
[2020-07-07] MEDS: Thiamine 100 MG TAB PO SCH (09:00)
[2020-07-07] MEDS: Folic Acid 1 MG TAB PO SCH (09:01)
[2020-07-07] MEDS: Acetaminophen 325 MG TAB PO PRN (09:05)
[2020-07-07] MEDS: 1/2 NS w/KCL 20 mEq 1,000 ML IV SCH ×2 (10:23→21:38)
[2020-07-07] MEDS: Loperamide HCl 2 MG CAP PO PRN ×2 (15:52→20:11)
[2020-07-07] MEDS: traZODone HCl 50 MG TAB PO SCH (20:10)
[2020-07-08 06:51] LABS: Hemoglobin 9.3 g/dL (14.0-18.0); Mean Corpuscular HGB CONC 33.3 g/dL (32.0-36.0); Mean Corpuscular Hemoglobin 28.4 pg (27.0-31.0); Mean Corpuscular Volume 85.3 fL (78.0-98.0); Mean Platelet Volume 11.4 fL (7.4-10.4); Platelet Count 143 thou/uL (130-400); RBC Distribution Width 23.7 % (11.5-14.5); Red Blood Cell (RBC) Count 3.27 mill/uL (4.70-6.10); White Blood Cell (WBC) Count 7.8 thou/uL (4.8-10.8)
[2020-07-08 07:16] LABS: ALT (SGPT) 81 U/L (8-55); AST (SGOT) 190 U/L (5-34); Albumin 2.4 g/dL (3.5-5.0); Alkaline Phosphatase 203 U/L (40-110); Anion Gap 10 mmol/L (10-20); BUN (Urea Nitrogen) Less than 4 mg/dL (8.9-20.6); Bilirubin, Total 4.2 mg/dL (0.2-1.2); Calc. Creatinine Clearance 193 mL/min (70-130); Calcium 7.4 mg/dL (7.8-10.44); Carbon Dioxide 25 mmol/L (22-29); Chloride 108 mmol/L (98-107); Globulin 2.7 g/dL (2.4-3.5); Glucose 94 mg/dL (70-105); Magnesium 1.7 mg/dL (1.6-2.6); Potassium 3.3 mmol/L (3.5-5.1); Protein, Total 5.1 g/dL (6.0-8.3); Sodium 140 mmol/L (136-145)
[2020-07-08] MEDS: levETIRAcetam 500 MG TAB PO SCH (08:06)
[2020-07-08] MEDS: Multivitamin W/ Minerals 1 TAB PO SCH (08:06)
[2020-07-08] MEDS: Magnesium Oxide 400 MG TAB PO SCH (08:06)
[2020-07-08] MEDS: hydrOXYzine Pamoate 25 mg Capsule PO SCH ×3 (08:06→21:19)
[2020-07-08] MEDS: Folic Acid 1 MG TAB PO SCH (08:07)
[2020-07-08] MEDS: Thiamine 100 MG TAB PO SCH (08:07)
[2020-07-08] MEDS: Loperamide HCl 2 MG CAP PO PRN ×3 (08:08→21:19)
[2020-07-08 08:52] LABS: Band 4 % (5-11); Eosinophils 5 % (0-10); Hypochromia MODERATE=16-30 cells (100X) (0-5/hpf); Lymphocytes 22 % (21-51); MDiff Complete? YES; Monocytes 7 % (0-10); Neutrophil 61 % (42-75); Platelet Morphology Comment Appears Adequate; Polychromasia MODERATE = 3-4 cells (100X) (0-2/hpf); Reactive Lymphocytes 1 % (0-10); Schistocytes SLIGHT = 2-5 cells (100X) (0-1/hpf); Target Cells MODERATE= 6-15 cells (100X) (0-1/hpf); Tear Drops SLIGHT = 2-5 cells (100X) (0-1/hpf)
[2020-07-08] MEDS: 1/2 NS w/KCL 20 mEq 1,000 ML IV SCH (12:07)
[2020-07-08] MEDS: traZODone HCl 50 MG TAB PO SCH (21:18)
[2020-07-09] MEDS: 1/2 NS w/KCL 20 mEq 1,000 ML IV SCH (01:48)
[2020-07-09 07:46] VITALS: BP 107/69; TEMP 98.1
[2020-07-09] MEDS: hydrOXYzine Pamoate 25 mg Capsule PO SCH (08:17)
[2020-07-09] MEDS: Folic Acid 1 MG TAB PO SCH (08:18)
[2020-07-09] MEDS: Multivitamin W/ Minerals 1 TAB PO SCH (08:18)
[2020-07-09] MEDS: Magnesium Oxide 400 MG TAB PO SCH (08:18)
[2020-07-09] MEDS: Thiamine 100 MG TAB PO SCH (08:18)
[2020-07-09] MEDS: levETIRAcetam 500 MG TAB PO SCH (08:18)
[2020-07-09] MEDS: Loperamide HCl 2 MG CAP PO PRN (08:23)
[2020-07-11 15:53] LABS: ANA Symphony (Qualitative) Negative (Negative); ANA Symphony (Quantitative) 0.2 Ratio (< 0.7 Negative); EliA Vaculitis New Method **** NEW METHOD ****; Mitochondrial Ab 1.1 U/mL (<4 Negative); dsDNA IgG Antibody 0.8 IU/mL (<10 Negative)
== END 2020-07-09 15:17 | disposition home or self-care (01) | DRG 432 ==
LOC: ERS 17:42 → T4-B 20:26
PROVIDERS: ADMIT Internal Medicine; ATTEND Internal Medicine
DX: K70.10 Alcoholic hepatitis without ascites (principal); K85.90 Acute pancreatitis without necrosis or infection, unspecified; F10.10 Alcohol abuse, uncomplicated; E87.6 Hypokalemia; G40.909 Epilepsy, unspecified, not intractable, without status epilepticus; F41.9 Anxiety disorder, unspecified; F32.9 Major depressive disorder, single episode, unspecified; G43.909 Migraine, unspecified, not intractable, without status migrainosus; Z98.890 Other specified postprocedural states; Z79.899 Other long term (current) drug therapy; Z79.891 Long term (current) use of opiate analgesic; J45.909 Unspecified asthma, uncomplicated; E88.09 Other disorders of plasma-protein metabolism, not elsewhere classified; R74.8 Abnormal levels of other serum enzymes
CPT/HCPCS: 36415; 71045; 76705; 80053; 80074; 80307; 81256; 82103; 82390; 82728; 83516; 83540; 83550; 83690; 83735; 83880; 84484; 85025; 85610; 85730; 86038; 86225; 87045; 87046; 87427; 87449; 87635; 90471; 90662; 93005; 96365; 96366; G0008; J2405; J3411; J3480; J7042; Q0177; U0003; U0005

== ENCOUNTER 2021-01-19 21:53 | Emergency (ER) | payer OTHER, SELFPAY ==
[~2021-01-19 21:53] MED LIST: Iopamidol-370 76% 500 ML 1 ML ONE
[2021-01-19] MEDS ORDERED: Fentanyl 100 MCG/2 ML VIAL ONE (22:12)
[2021-01-19] MEDS ORDERED: Boostrix 0.5 ML (Tdap) VIAL ONE (22:12)
[2021-01-19 22:55] LABS: ALT (SGPT) 43 U/L (8-55); AST (SGOT) 57 U/L (5-34); Albumin 4.6 g/dL (3.5-5.0); Alkaline Phosphatase 168 U/L (40-110); Anion Gap 18 mmol/L (10-20); BUN (Urea Nitrogen) 10 mg/dL (8.9-20.6); Bilirubin, Total 1.1 mg/dL (0.2-1.2); Calc. Creatinine Clearance 0 mL/min (70-130); Calcium 9.3 mg/dL (7.8-10.44); Carbon Dioxide 20 mmol/L (22-29); Chloride 106 mmol/L (98-107); Globulin 3.1 g/dL (2.4-3.5); Glucose 91 mg/dL (70-105); Potassium 3.9 mmol/L (3.5-5.1); Protein, Total 7.7 g/dL (6.0-8.3); Sodium 140 mmol/L (136-145)
[2021-01-19 23:11] LABS: #Basophils 0.2 thou/uL (0.0-0.2); #Eosinphils 0.3 thou/uL (0.0-0.7); #Lymphocytes 4.7 thou/uL (1.20-3.40); #Monocytes 0.7 thou/uL (0.11-0.59); #Neutrophils 5.7 thou/uL (1.40-6.50); %Basophils 1.5 % (0.0-1.0); %Eosinophils 2.7 % (0.0-10.0); %Lymphocytes 40.4 % (21.0-51.0); %Monocytes 6.2 % (0.0-10.0); %Neutrophils 49.2 % (42.0-75.0); Band 2 % (5-11); Eosinophils 2 % (0-10); Hemoglobin 14.3 g/dL (14.0-18.0); Lymphocytes 32 % (21-51); MDiff Complete? YES; Mean Corpuscular HGB CONC 32.7 g/dL (32.0-36.0); Mean Corpuscular Hemoglobin 24.1 pg (27.0-31.0); Mean Corpuscular Volume 73.6 fL (78.0-98.0); Mean Platelet Volume 5.9 fL (7.4-10.4); Microcytosis SLIGHT = 6-15 cells (100X) (0-5/hpf); Monocytes 2 % (0-10); Neutrophil 54 % (42-75); Ovalocytes SLIGHT = 2-5 cells (100X) (0-1/hpf); Platelet Count 229 thou/uL (130-400); Platelet Morphology Comment Appears Adequate; RBC Distribution Width 17.2 % (11.5-14.5); Reactive Lymphocytes 5 % (0-10); Red Blood Cell (RBC) Count 5.94 mill/uL (4.70-6.10); Tear Drops SLIGHT = 2-5 cells (100X) (0-1/hpf); White Blood Cell (WBC) Count 11.5 thou/uL (4.8-10.8)
[2021-01-19 23:41] LABS: PTT 28.9 sec (22.9-36.1); Prothrombin Time 14.7 sec (12.0-14.7)
[2021-01-19 23:42] LABS: INR-International Normal Ratio 1.1
[2021-01-19] MEDS ORDERED: HYDROcodone/Acetaminophen 5/325 mg Tablet ONE (23:44)
[2021-01-19] MEDS ORDERED: Ketorolac Tromethamine 30 MG/ML VIAL ONE (23:44)
== END 2021-01-20 00:40 | disposition home or self-care (01) ==
LOC: ERS 21:53
DX: S80.01XA Contusion of right knee, initial encounter (principal); S40.811A Abrasion of right upper arm, initial encounter; V28.9XXA Unspecified motorcycle rider injured in noncollision transport accident in traffic accident, initial encounter
CPT/HCPCS: 36415; 70450; 71045; 71260; 72125; 72170; 74177; 80053; 85025; 85610; 85730; 90471; 90715; 96365; 96375; J0690; J1885; J3010; Q9967

== ENCOUNTER 2021-02-11 00:15 | Inpatient (IN) | payer SELFPAY ==
[2021-02-11 00:39] LABS: #Basophils 0.1 thou/uL (0.0-0.2); #Eosinphils 0.4 thou/uL (0.0-0.7); #Lymphocytes 2.4 thou/uL (1.20-3.40); #Monocytes 1.2 thou/uL (0.11-0.59); #Neutrophils 9.8 thou/uL (1.40-6.50); %Basophils 0.7 % (0.0-1.0); %Eosinophils 2.9 % (0.0-10.0); %Lymphocytes 17.3 % (21.0-51.0); %Monocytes 8.5 % (0.0-10.0); %Neutrophils 70.7 % (42.0-75.0); Hemoglobin 13.3 g/dL (14.0-18.0); Mean Corpuscular HGB CONC 33.8 g/dL (32.0-36.0); Mean Platelet Volume 11.4 fL (7.4-10.4); Platelet Count 215 thou/uL (130-400); RBC Distribution Width 15.9 % (11.5-14.5); Red Blood Cell (RBC) Count 5.31 mill/uL (4.70-6.10); White Blood Cell (WBC) Count 13.9 thou/uL (4.8-10.8)
[2021-02-11 00:56] LABS: ALT (SGPT) 54 U/L (8-55); AST (SGOT) 52 U/L (5-34); Albumin 4.7 g/dL (3.5-5.0); Alkaline Phosphatase 179 U/L (40-110); Anion Gap 16 mmol/L (10-20); BUN (Urea Nitrogen) 14 mg/dL (8.9-20.6); Bilirubin, Total 1.1 mg/dL (0.2-1.2); Calc. Creatinine Clearance 0 mL/min (70-130); Carbon Dioxide 26 mmol/L (22-29); Chloride 101 mmol/L (98-107); Globulin 3.2 g/dL (2.4-3.5); Glucose 89 mg/dL (70-105); Potassium 4.1 mmol/L (3.5-5.1); Protein, Total 7.9 g/dL (6.0-8.3); Sodium 139 mmol/L (136-145)
[2021-02-11] MEDS ORDERED: Morphine 4 MG/ML VIAL ONE (01:15)
[2021-02-11] MEDS ORDERED: VANCOMYCIN 2 GRAM/400 ML BAG 2 GM in Premix Bag 1 BAG IVPB SCH (01:15)
[2021-02-11] MEDS ORDERED: Cefepime 2 GM VIAL ONE (01:15)
[2021-02-11] MEDS ORDERED: Ondansetron PF 4 MG/2 ML Vial ONE (01:15)
[2021-02-11 05:06] VITALS: BMI 31.8
[2021-02-11] MEDS ORDERED: Ondansetron PF 4 MG/2 ML Vial IVP PRN (05:27)
[2021-02-11] MEDS ORDERED: Acetaminophen 325 MG TAB PO PRN (05:27)
[2021-02-11] MEDS ORDERED: Acetaminophen 650 MG Suppository PR PRN (05:27)
[2021-02-11] MEDS ORDERED: Ondansetron ODT 4 MG TAB PO PRN (05:27)
[2021-02-11] MEDS ORDERED: FLU VACC QS2021-22(6MOS UP)/PF 60 MCG/0.5 ML SYRINGE IM ONE (09:00)
[2021-02-11] MEDS: Enoxaparin Sodium 40 MG/0.4 ML SYRINGE SC SCH (09:16)
[2021-02-11] MEDS ORDERED: levETIRAcetam 500 MG TAB PO SCH (09:45)
[2021-02-11] MEDS ORDERED: Nicotine 14 MG PATCH TD SCH (10:00)
[2021-02-11] MEDS ORDERED: Ibuprofen 800 MG TAB PO PRN (10:01)
[2021-02-11] MEDS: Acetaminophen 325 MG TAB PO SCH ×4 (10:50→23:24)
[2021-02-11] MEDS ORDERED: Acetaminophen/Codeine 30-300mg Tablet PO PRN (11:14)
[2021-02-11 14:04] LABS: SARS-CoV-2 PCR by NAA Not Detected (NotDetected)
[2021-02-11] MEDS: Acetaminophen/Codeine 30-300mg Tablet PO PRN ×2 (14:27→20:38)
[2021-02-11] MEDS: Nicotine 21 MG PATCH TOP SCH (14:27)
[2021-02-11] MEDS: Cefepime 2 GM in Sodium Chloride 0.9% 100 ML IVPB SCH (14:28)
[2021-02-11] MEDS: Vancomycin 1.5 GRAM/300 ML BAG 1.5 GM in Premix Bag 1 BAG IVPB SCH (14:29)
[2021-02-12] MEDS: Cefepime 2 GM in Sodium Chloride 0.9% 100 ML IVPB SCH ×3 (01:30→14:55)
[2021-02-12] MEDS: Vancomycin 1.5 GRAM/300 ML BAG 1.5 GM in Premix Bag 1 BAG IVPB SCH ×2 (02:07→13:01)
[2021-02-12] MEDS: Acetaminophen 325 MG TAB PO SCH ×6 (03:06→22:46)
[2021-02-12] MEDS: Acetaminophen/Codeine 30-300mg Tablet PO PRN ×3 (05:57→18:10)
[2021-02-12 06:05] LABS: #Basophils 0.1 thou/uL (0.0-0.2); #Eosinphils 0.6 thou/uL (0.0-0.7); #Lymphocytes 1.7 thou/uL (1.20-3.40); #Neutrophils 7.5 thou/uL (1.40-6.50); %Basophils 0.5 % (0.0-1.0); %Eosinophils 5.7 % (0.0-10.0); %Lymphocytes 15.5 % (21.0-51.0); %Monocytes 9.5 % (0.0-10.0); %Neutrophils 68.8 % (42.0-75.0); Hemoglobin 11.8 g/dL (14.0-18.0); Mean Corpuscular Volume 75.1 fL (78.0-98.0); Mean Platelet Volume 11.1 fL (7.4-10.4); Platelet Count 178 thou/uL (130-400); RBC Distribution Width 15.5 % (11.5-14.5); Red Blood Cell (RBC) Count 4.89 mill/uL (4.70-6.10); White Blood Cell (WBC) Count 10.8 thou/uL (4.8-10.8)
[2021-02-12 06:22] LABS: Anion Gap 13 mmol/L (10-20); BUN (Urea Nitrogen) 15 mg/dL (8.9-20.6); Calc. Creatinine Clearance 167 mL/min (70-130); Carbon Dioxide 26 mmol/L (22-29); Chloride 105 mmol/L (98-107); Glucose 118 mg/dL (70-105); Potassium 4.4 mmol/L (3.5-5.1); Sodium 140 mmol/L (136-145)
[2021-02-12] MEDS: Enoxaparin Sodium 40 MG/0.4 ML SYRINGE SC SCH (09:34)
[2021-02-12] MEDS: levETIRAcetam 500 MG TAB PO SCH (09:34)
[2021-02-12 13:38] LABS: Vancomycin, Trough 11.3 ug/mL
[2021-02-12] MEDS: Nicotine 21 MG PATCH TOP SCH (14:54)
[2021-02-13] MEDS: Cefepime 2 GM in Sodium Chloride 0.9% 100 ML IVPB SCH ×2 (01:34→14:10)
[2021-02-13] MEDS: Vancomycin 1.5 GRAM/300 ML BAG 1.5 GM in Premix Bag 1 BAG IVPB SCH ×2 (02:10→14:08)
[2021-02-13] MEDS: Acetaminophen 325 MG TAB PO SCH ×5 (03:05→22:42)
[2021-02-13] MEDS: levETIRAcetam 500 MG TAB PO SCH (08:30)
[2021-02-13] MEDS: Enoxaparin Sodium 40 MG/0.4 ML SYRINGE SC SCH (08:32)
[2021-02-13] MEDS ORDERED: Famotidine 20 MG TAB PO SCH (10:00)
[2021-02-13] MEDS: Nicotine 21 MG PATCH TOP SCH (14:06)
[2021-02-13] MEDS: Famotidine 20 MG TAB PO SCH (20:43)
[2021-02-14] MEDS: Cefepime 2 GM in Sodium Chloride 0.9% 100 ML IVPB SCH ×2 (02:07→13:51)
[2021-02-14] MEDS: Vancomycin 1.5 GRAM/300 ML BAG 1.5 GM in Premix Bag 1 BAG IVPB SCH ×3 (02:08→17:48)
[2021-02-14 06:05] LABS: #Basophils 0.1 thou/uL (0.0-0.2); #Eosinphils 0.6 thou/uL (0.0-0.7); #Monocytes 1.2 thou/uL (0.11-0.59); %Eosinophils 5.7 % (0.0-10.0); %Monocytes 11.2 % (0.0-10.0); %Neutrophils 55.1 % (42.0-75.0); Hemoglobin 11.9 g/dL (14.0-18.0); Mean Corpuscular HGB CONC 31.4 g/dL (32.0-36.0); Mean Corpuscular Hemoglobin 23.7 pg (27.0-31.0); Mean Corpuscular Volume 75.5 fL (78.0-98.0); Mean Platelet Volume 11.3 fL (7.4-10.4); Platelet Count 201 thou/uL (130-400); RBC Distribution Width 15.3 % (11.5-14.5); Red Blood Cell (RBC) Count 5.01 mill/uL (4.70-6.10)
[2021-02-14] MEDS: Acetaminophen 325 MG TAB PO SCH ×6 (08:50→23:05)
[2021-02-14] MEDS: Enoxaparin Sodium 40 MG/0.4 ML SYRINGE SC SCH (09:15)
[2021-02-14] MEDS: levETIRAcetam 500 MG TAB PO SCH (09:16)
[2021-02-14] MEDS: Famotidine 20 MG TAB PO SCH ×2 (09:17→20:22)
[2021-02-14] MEDS: Acetaminophen/Codeine 30-300mg Tablet PO PRN ×2 (13:51→21:35)
[2021-02-14] MEDS: Nicotine 21 MG PATCH TOP SCH (14:22)
[2021-02-15 01:12] LABS: Vancomycin, Trough 22.6 ug/mL
[2021-02-15] MEDS: Cefepime 2 GM in Sodium Chloride 0.9% 100 ML IVPB SCH ×2 (02:06→13:03)
[2021-02-15] MEDS: Acetaminophen 325 MG TAB PO SCH ×3 (02:41→11:09)
[2021-02-15] MEDS: VANCOMYCIN 2 GRAM/400 ML BAG 2 GM in Premix Bag 1 BAG IVPB SCH ×2 (02:44→13:41)
[2021-02-15] MEDS: Enoxaparin Sodium 40 MG/0.4 ML SYRINGE SC SCH (10:01)
[2021-02-15] MEDS: Famotidine 20 MG TAB PO SCH (10:02)
[2021-02-15] MEDS: levETIRAcetam 500 MG TAB PO SCH (10:03)
[2021-02-15] MEDS: Acetaminophen/Codeine 30-300mg Tablet PO PRN (11:03)
[2021-02-15 13:57] VITALS: BP 115/80; TEMP 97.6
== END 2021-02-15 15:55 | disposition home or self-care (01) | DRG 558 ==
LOC: ERS 00:15 → SJJU 01:57 → OBSVTOIN 18:24
PROVIDERS: ADMIT Student in an Organized Health Care Education/Training Program; ATTEND Family Medicine
DX: M71.161 Other infective bursitis, right knee (principal); L03.115 Cellulitis of right lower limb; Z20.822 Contact with and (suspected) exposure to COVID-19; G40.909 Epilepsy, unspecified, not intractable, without status epilepticus; F32.A Depression, unspecified; F17.210 Nicotine dependence, cigarettes, uncomplicated; F41.9 Anxiety disorder, unspecified; B96.89 Other specified bacterial agents as the cause of diseases classified elsewhere; D50.9 Iron deficiency anemia, unspecified; Z79.899 Other long term (current) drug therapy; Z71.6 Tobacco abuse counseling
CPT/HCPCS: 36415; 80048; 80053; 80202; 83605; 85025; 85652; 86140; 87040; 90471; 90686; 96365; 96366; 96367; 96372; 96375; G0008; G0378; J0692; J1650; J2270; J2405; J3370; J3490; U0003; U0005

== ENCOUNTER 2021-04-24 14:12 | Emergency (ER) | payer SELFPAY ==
[2021-04-24 22:48] LABS: SARS-CoV-2 PCR by NAA Not Detected (NotDetected)
== END 2021-04-24 15:20 | disposition home or self-care (01) ==
LOC: ERS 14:12
DX: R11.10 Vomiting, unspecified (principal); M79.10 Myalgia, unspecified site; Z20.822 Contact with and (suspected) exposure to COVID-19; F17.210 Nicotine dependence, cigarettes, uncomplicated
CPT/HCPCS: 87804; 99283; U0003; U0005

== ENCOUNTER 2021-05-23 19:54 | Emergency (ER) | payer SELFPAY ==
[2021-05-23] MEDS ORDERED: levETIRAcetam in NS 100 ML ONE (21:34)
[2021-05-23] MEDS ORDERED: Acetaminophen 325 MG TAB ONE (22:04)
== END 2021-05-23 22:10 | disposition home or self-care (01) ==
LOC: ERS 19:54
DX: R51.9 Headache, unspecified (principal); R56.9 Unspecified convulsions; F17.210 Nicotine dependence, cigarettes, uncomplicated; Z79.899 Other long term (current) drug therapy
CPT/HCPCS: 70450; 93005; 96374; J1953

== ENCOUNTER 2021-10-16 13:23 | Emergency (ER) | payer OTHER, SELFPAY ==
[2021-10-16] MEDS ORDERED: Ondansetron PF 4 MG/2 ML Vial ONE (14:13)
[2021-10-16] MEDS ORDERED: levETIRAcetam 500 MG/5 ML VIAL ONE (14:16)
[2021-10-16 14:20] LABS: #Basophils 0.1 thou/uL (0.0-0.2); #Lymphocytes 0.9 thou/uL (1.20-3.40); #Monocytes 0.4 thou/uL (0.11-0.59); #Neutrophils 4.1 thou/uL (1.40-6.50); %Basophils 1.3 % (0.0-1.0); %Eosinophils 0.8 % (0.0-10.0); %Lymphocytes 15.8 % (21.0-51.0); %Monocytes 6.9 % (0.0-10.0); %Neutrophils 75.2 % (42.0-75.0); Hemoglobin 15.1 g/dL (14.0-18.0); Mean Corpuscular HGB CONC 32.3 g/dL (32.0-36.0); Mean Corpuscular Hemoglobin 28.7 pg (27.0-31.0); Mean Corpuscular Volume 88.7 fL (78.0-98.0); Mean Platelet Volume 7.5 fL (7.4-10.4); Platelet Count 135 thou/uL (130-400); RBC Distribution Width 18.1 % (11.5-14.5); Red Blood Cell (RBC) Count 5.25 mill/uL (4.70-6.10); White Blood Cell (WBC) Count 5.5 thou/uL (4.8-10.8)
[2021-10-16 14:41] LABS: ALT (SGPT) 94 U/L (8-55); AST (SGOT) 173 U/L (5-34); Albumin 4.6 g/dL (3.5-5.0); Alkaline Phosphatase 198 U/L (40-110); Anion Gap 21 mmol/L (10-20); BUN (Urea Nitrogen) 10 mg/dL (8.9-20.6); Bilirubin, Total 3.3 mg/dL (0.2-1.2); Calc. Creatinine Clearance 0 mL/min (70-130); Calcium 10.3 mg/dL (7.8-10.44); Carbon Dioxide 20 mmol/L (22-29); Chloride 101 mmol/L (98-107); Globulin 3.6 g/dL (2.4-3.5); Glucose 103 mg/dL (70-105); Potassium 4.6 mmol/L (3.5-5.1); Protein, Total 8.2 g/dL (6.0-8.3); Sodium 137 mmol/L (136-145)
== END 2021-10-16 15:25 | disposition home or self-care (01) ==
LOC: ERS 13:23
DX: S01.412A Laceration without foreign body of left cheek and temporomandibular area, initial encounter (principal); R56.9 Unspecified convulsions; F17.210 Nicotine dependence, cigarettes, uncomplicated; R11.10 Vomiting, unspecified; W19.XXXA Unspecified fall, initial encounter; Y92.69 Other specified industrial and construction area as the place of occurrence of the external cause
CPT/HCPCS: 12011; 36415; 70450; 80053; 80177; 85025; 96365; 96375; J1953; J2405

== ENCOUNTER 2022-04-22 16:08 | Emergency (ER) | payer SELFPAY ==
[2022-04-22] MEDS ORDERED: levETIRAcetam 500 MG TAB PO SCH (16:45)
== END 2022-04-22 17:48 | disposition home or self-care (01) ==
LOC: ERS 16:08
DX: G40.909 Epilepsy, unspecified, not intractable, without status epilepticus (principal); F17.210 Nicotine dependence, cigarettes, uncomplicated; Z79.899 Other long term (current) drug therapy
CPT/HCPCS: 99283

== ENCOUNTER 2022-05-25 10:40 | Inpatient (IN) | payer SELFPAY ==
[~2022-05-25 10:40] MED LIST changes: +Iopamidol 370 76% 100 ML VIAL ONE; -Iopamidol-370 76% 500 ML 1 ML ONE
[2022-05-25 11:12] LABS: #Basophils 0.1 thou/uL (0.0-0.2); #Eosinphils 0.2 thou/uL (0.0-0.7); #Lymphocytes 1.8 thou/uL (1.20-3.40); #Monocytes 0.6 thou/uL (0.11-0.59); #Neutrophils 7.6 thou/uL (1.40-6.50); %Basophils 0.6 % (0.0-1.0); %Eosinophils 1.5 % (0.0-10.0); %Lymphocytes 17.8 % (21.0-51.0); %Neutrophils 74.1 % (42.0-75.0); Hemoglobin 15.2 g/dL (14.0-18.0); Mean Corpuscular HGB CONC 33.5 g/dL (32.0-36.0); Mean Corpuscular Hemoglobin 32.5 pg (27.0-31.0); Mean Corpuscular Volume 97.1 fl (78.0-98.0); RBC Distribution Width 13.9 % (11.5-14.5); Red Blood Cell (RBC) Count 4.68 mill/uL (4.70-6.10); White Blood Cell (WBC) Count 10.3 10x3/uL (4.8-10.8)
[2022-05-25 11:28] LABS: ALT (SGPT) 65 U/L (8-55); AST (SGOT) 173 U/L (5-34); Albumin 3.9 g/dL (3.5-5.0); Alkaline Phosphatase 204 U/L (40-110); Anion Gap 15 mmol/L (10-20); BUN (Urea Nitrogen) 11 mg/dL (8.9-20.6); Bilirubin, Total 11.8 mg/dL (0.2-1.2); Calc. Creatinine Clearance 0 mL/min (70-130); Calcium 9.2 mg/dL (7.8-10.44); Carbon Dioxide 26 mmol/L (22-29); Chloride 94 mmol/L (98-107); Estimated GFR 124; Globulin 3.3 g/dL (2.4-3.5); Glucose 113 mg/dL (70-105); Potassium 3.5 mmol/L (3.5-5.1); Protein, Total 7.2 g/dL (6.0-8.3); Sodium 131 mmol/L (136-145)
[2022-05-25 11:36] LABS: Large Platelets SLIGHT; MDiff Complete? YES; Mean Platelet Volume 11.4 fL (7.4-10.4); Platelet Count 63 10x3/uL (130-400); Platelet Morphology Comment Appears Decreased; Target Cells SLIGHT = 2-5 cells (100X) (0-1/hpf)
[2022-05-25] MEDS ORDERED: Fentanyl 100 MCG/2 ML VIAL ONE (12:38)
[2022-05-25] MEDS ORDERED: Ketorolac Tromethamine 30 MG/ML VIAL ONE (12:38)
[2022-05-25 14:56] LABS: Bilirubin, Direct 7.2 mg/dL (0.1-0.3); Bilirubin, Total 11.5 mg/dL (0.2-1.2)
[2022-05-25] MEDS ORDERED: LORazepam 2 MG/ML SYR.(CARPUJECT) ONE ×2 (16:52→22:45)
[2022-05-25 17:31] LABS: INR-International Normal Ratio 1.1; PTT 33.2 sec (22.9-36.1); Prothrombin Time 14.4 sec (12.0-14.7)
[2022-05-25 17:33] LABS: Acetaminophen Less than 10.0 mcg/mL (10.0-30.0); Alcohol Less than 10 mg/dL (Less than 10); Salicylate Less than 8.0 mg/dL (15.0-30.0)
[2022-05-25] MEDS ORDERED: Lorazepam 1 MG TAB PO PRN (17:55)
[2022-05-25] MEDS ORDERED: Ondansetron ODT 4 MG TAB PO PRN (17:55)
[2022-05-25] MEDS ORDERED: Lorazepam 2 MG/ML VIAL IM PRN (17:55)
[2022-05-25] MEDS ORDERED: Lorazepam 2 MG/ML VIAL SLOW IVP PRN (17:55)
[2022-05-25] MEDS ORDERED: Electrolyte Replacement Protocol 1 EACH FS SCH (18:00)
[2022-05-25] MEDS ORDERED: Potassium Chloride 20 MEQ TAB PO SCH (18:30)
[2022-05-25] MEDS ORDERED: Lorazepam 1 MG TAB ONE (22:08)
[2022-05-25] MEDS ORDERED: Cephalexin 250 MG CAP ONE (22:09)
[2022-05-25] MEDS ORDERED: Potassium Chloride 20 MEQ TAB ONE (22:09)
[2022-05-25] MEDS: Lorazepam 1 MG TAB PO SCH (22:14)
[2022-05-25] MEDS ORDERED: Morphine 2 MG/ML VIAL ONE (22:44)
[2022-05-25] MEDS: Morphine 2 MG/ML VIAL SLOW IVP PRN (23:05)
[2022-05-25 23:27] LABS: Bilirubin 2+ (Negative); Blood, Urine Negative (Negative); Clarity Clear (Clear); Glucose, Urine (Dipstick) Normal (Negative); Ketone, Urine Negative (Negative); Leukocyte Negative Leu/uL (Negative); Nitrite Negative (Negative); Protein, Urine (Dipstick) 20 mg/dL (Neg-Trace)
[2022-05-25] MEDS: traZODone HCl 150 MG TAB PO SCH (23:37)
[2022-05-25] MEDS: levETIRAcetam 500 MG TAB PO SCH (23:40)
[2022-05-25] MEDS: Sertraline 100 MG TAB PO SCH (23:40)
[2022-05-25] MEDS: Thiamine HCl 200 MG/2 ML VIAL SLOW IVP SCH (23:40)
[2022-05-26] MEDS: Lorazepam 1 MG TAB PO SCH ×5 (00:09→23:43)
[2022-05-26 01:53] LABS: #Basophils 0.1 thou/uL (0.0-0.2); #Eosinphils 0.2 thou/uL (0.0-0.7); #Lymphocytes 1.4 thou/uL (1.20-3.40); #Monocytes 0.6 thou/uL (0.11-0.59); #Neutrophils 4.5 thou/uL (1.40-6.50); %Basophils 0.9 % (0.0-1.0); %Eosinophils 2.7 % (0.0-10.0); %Lymphocytes 21.2 % (21.0-51.0); %Neutrophils 66.3 % (42.0-75.0); Hemoglobin 13.7 g/dL (14.0-18.0); Mean Corpuscular HGB CONC 33.3 g/dL (32.0-36.0); Mean Corpuscular Hemoglobin 32.4 pg (27.0-31.0); Mean Corpuscular Volume 97.5 fl (78.0-98.0); Mean Platelet Volume 12.1 fL (7.4-10.4); Platelet Count 47 10x3/uL (130-400); RBC Distribution Width 13.8 % (11.5-14.5); Red Blood Cell (RBC) Count 4.22 mill/uL (4.70-6.10); White Blood Cell (WBC) Count 6.8 10x3/uL (4.8-10.8)
[2022-05-26] MEDS ORDERED: LORazepam 2 MG/ML SYR.(CARPUJECT) IVP PRN (02:02)
[2022-05-26 02:21] LABS: ALT (SGPT) 50 U/L (8-55); AST (SGOT) 131 U/L (5-34); Albumin 3.5 g/dL (3.5-5.0); Alkaline Phosphatase 169 U/L (40-110); Anion Gap 13 mmol/L (10-20); BUN (Urea Nitrogen) 13 mg/dL (8.9-20.6); Bilirubin, Total 9.6 mg/dL (0.2-1.2); Calc. Creatinine Clearance 0 mL/min (70-130); Carbon Dioxide 27 mmol/L (22-29); Chloride 97 mmol/L (98-107); Estimated GFR 123; Globulin 3.1 g/dL (2.4-3.5); Glucose 111 mg/dL (70-105); Magnesium 1.8 mg/dL (1.6-2.6); Potassium 3.8 mmol/L (3.5-5.1); Protein, Total 6.6 g/dL (6.0-8.3); Sodium 133 mmol/L (136-145)
[2022-05-26] MEDS ORDERED: Lorazepam 1 MG TAB ONE (07:12)
[2022-05-26] MEDS ORDERED: LORazepam 2 MG/ML SYR.(CARPUJECT) ONE (07:12)
[2022-05-26] MEDS ORDERED: Magnesium 2 GM/50 ML(in water) 2 GM in Premix Bag 1 BAG IVPB SCH (08:00)
[2022-05-26 10:11] VITALS: BMI 28.0
[2022-05-26] MEDS: Folic Acid 1 MG TAB PO SCH (11:55)
[2022-05-26] MEDS: buPROPion HCl 100 MG TAB PO SCH (11:55)
[2022-05-26] MEDS: levETIRAcetam 500 MG TAB PO SCH ×2 (11:55→21:21)
[2022-05-26] MEDS: Multivit, Therapeutic 1 TAB PO SCH (11:56)
[2022-05-26] MEDS: Sertraline 100 MG TAB PO SCH ×2 (11:56→21:23)
[2022-05-26] MEDS: Thiamine HCl 200 MG/2 ML VIAL SLOW IVP SCH (17:36)
[2022-05-26] MEDS ORDERED: Lorazepam 1 MG TAB PO PRN (17:56)
[2022-05-26] MEDS ORDERED: FLU VACC QS2022-23(6MOS UP)/PF 60 MCG/0.5 ML SYRINGE IM ONE (18:00)
[2022-05-26] MEDS: traZODone HCl 150 MG TAB PO SCH (21:21)
[2022-05-26] MEDS: Morphine 2 MG/ML VIAL SLOW IVP PRN (21:23)
[2022-05-27] MEDS: Lorazepam 1 MG TAB PO SCH ×2 (05:00→11:29)
[2022-05-27] MEDS: Morphine 2 MG/ML VIAL SLOW IVP PRN ×3 (05:01→18:33)
[2022-05-27 08:35] LABS: #Eosinphils 0.2 thou/uL (0.0-0.7); #Lymphocytes 1.7 thou/uL (1.20-3.40); #Monocytes 0.7 thou/uL (0.11-0.59); %Basophils 0.8 % (0.0-1.0); %Eosinophils 4.4 % (0.0-10.0); %Lymphocytes 30.6 % (21.0-51.0); %Monocytes 11.6 % (0.0-10.0); %Neutrophils 52.7 % (42.0-75.0); Hemoglobin 13.4 g/dL (14.0-18.0); Mean Corpuscular HGB CONC 33.3 g/dL (32.0-36.0); Mean Corpuscular Hemoglobin 33.2 pg (27.0-31.0); Mean Corpuscular Volume 99.5 fl (78.0-98.0); Mean Platelet Volume 11.4 fL (7.4-10.4); Platelet Count 64 10x3/uL (130-400); RBC Distribution Width 14.1 % (11.5-14.5); Red Blood Cell (RBC) Count 4.04 mill/uL (4.70-6.10); White Blood Cell (WBC) Count 5.7 10x3/uL (4.8-10.8)
[2022-05-27] MEDS: levETIRAcetam 500 MG TAB PO SCH ×2 (08:45→20:38)
[2022-05-27] MEDS: buPROPion HCl 100 MG TAB PO SCH (08:45)
[2022-05-27] MEDS: Folic Acid 1 MG TAB PO SCH (08:45)
[2022-05-27] MEDS: Multivit, Therapeutic 1 TAB PO SCH (08:46)
[2022-05-27] MEDS: Sertraline 100 MG TAB PO SCH ×2 (08:46→20:38)
[2022-05-27 08:52] LABS: ALT (SGPT) 46 U/L (8-55); AST (SGOT) 127 U/L (5-34); Albumin 3.4 g/dL (3.5-5.0); Alkaline Phosphatase 207 U/L (40-110); Anion Gap 12 mmol/L (10-20); BUN (Urea Nitrogen) 12 mg/dL (8.9-20.6); Bilirubin, Total 6.1 mg/dL (0.2-1.2); Calc. Creatinine Clearance 186 mL/min (70-130); Carbon Dioxide 23 mmol/L (22-29); Chloride 103 mmol/L (98-107); Estimated GFR 122; Globulin 3.2 g/dL (2.4-3.5); Glucose 87 mg/dL (70-105); Potassium 3.4 mmol/L (3.5-5.1); Protein, Total 6.6 g/dL (6.0-8.3); Sodium 135 mmol/L (136-145)
[2022-05-27] MEDS: Potassium Chloride 20 MEQ TAB PO SCH ×2 (11:29→16:43)
[2022-05-27] MEDS ORDERED: Lorazepam 1 MG TAB PO PRN (17:56)
[2022-05-27] MEDS: Lorazepam 0.5 MG TAB PO SCH ×2 (18:33→23:53)
[2022-05-27] MEDS: Thiamine HCl 200 MG/2 ML VIAL SLOW IVP SCH (18:33)
[2022-05-27] MEDS: traZODone HCl 150 MG TAB PO SCH (20:38)
[2022-05-28 06:01] LABS: Hemoglobin 14.3 g/dL (14.0-18.0); Mean Corpuscular HGB CONC 32.9 g/dL (32.0-36.0); Mean Corpuscular Hemoglobin 32.5 pg (27.0-31.0); Mean Corpuscular Volume 98.9 fl (78.0-98.0); RBC Distribution Width 14.1 % (11.5-14.5); Red Blood Cell (RBC) Count 4.39 mill/uL (4.70-6.10); White Blood Cell (WBC) Count 5.8 10x3/uL (4.8-10.8)
[2022-05-28] MEDS: Lorazepam 0.5 MG TAB PO SCH ×2 (06:14→12:53)
[2022-05-28 06:34] LABS: #Basophils 0.1 thou/uL (0.0-0.2); #Eosinphils 0.2 thou/uL (0.0-0.7); #Lymphocytes 1.6 thou/uL (1.20-3.40); #Monocytes 0.7 thou/uL (0.11-0.59); #Neutrophils 3.3 thou/uL (1.40-6.50); %Basophils 0.9 % (0.0-1.0); %Lymphocytes 27.5 % (21.0-51.0); %Monocytes 11.4 % (0.0-10.0); %Neutrophils 56.1 % (42.0-75.0); Mean Platelet Volume 11.7 fL (7.4-10.4); Platelet Count 75 10x3/uL (130-400); Platelet Morphology Comment Appears Decreased
[2022-05-28 06:36] LABS: ALT (SGPT) 50 U/L (8-55); AST (SGOT) 121 U/L (5-34); Albumin 3.6 g/dL (3.5-5.0); Alkaline Phosphatase 242 U/L (40-110); Anion Gap 14 mmol/L (10-20); BUN (Urea Nitrogen) 12 mg/dL (8.9-20.6); Bilirubin, Total 5.3 mg/dL (0.2-1.2); Calc. Creatinine Clearance 177 mL/min (70-130); Calcium 9.6 mg/dL (7.8-10.44); Carbon Dioxide 24 mmol/L (22-29); Chloride 102 mmol/L (98-107); Estimated GFR 121; Globulin 3.6 g/dL (2.4-3.5); Glucose 95 mg/dL (70-105); Potassium 4.3 mmol/L (3.5-5.1); Protein, Total 7.2 g/dL (6.0-8.3); Sodium 136 mmol/L (136-145)
[2022-05-28] MEDS: buPROPion HCl 100 MG TAB PO SCH (08:51)
[2022-05-28] MEDS: levETIRAcetam 500 MG TAB PO SCH (08:51)
[2022-05-28] MEDS: Folic Acid 1 MG TAB PO SCH (08:51)
[2022-05-28] MEDS: Sertraline 100 MG TAB PO SCH (08:51)
[2022-05-28] MEDS: Multivit, Therapeutic 1 TAB PO SCH (08:51)
[2022-05-28] MEDS: Morphine 2 MG/ML VIAL SLOW IVP PRN ×2 (08:52→13:22)
[2022-05-28] MEDS ORDERED: Thiamine 100 MG TAB PO SCH (09:00)
[2022-05-28 12:47] VITALS: BP 116/81; TEMP 98.2
[2022-05-28] MEDS ORDERED: Lorazepam 0.5 MG TAB PO PRN (17:56)
== END 2022-05-28 14:58 | disposition home or self-care (01) | DRG 433 ==
LOC: SUATTDRO 10:40 → ERS 10:40 → ERHOLD 17:32 → OBSVTOIN 05-26 09:09 → 2NO 05-26 09:46 → SURG A 05-26 18:31
PROVIDERS: ADMIT Internal Medicine; ATTEND Family Medicine
DX: K70.10 Alcoholic hepatitis without ascites (principal); R45.851 Suicidal ideations; K74.60 Unspecified cirrhosis of liver; F32.A Depression, unspecified; G40.909 Epilepsy, unspecified, not intractable, without status epilepticus; F10.20 Alcohol dependence, uncomplicated; F41.9 Anxiety disorder, unspecified; S82.62XA Displaced fracture of lateral malleolus of left fibula, initial encounter for closed fracture; W10.9XXA Fall (on) (from) unspecified stairs and steps, initial encounter; Z71.6 Tobacco abuse counseling
CPT/HCPCS: 36415; 70450; 71260; 72125; 74177; 80053; 80307; 81003; 82140; 82247; 83735; 84443; 84484; 85025; 85610; 85730; 93005; G0378; J1885; J2060; J2272; J3010; J3411; J3475; Q9967

== ENCOUNTER 2022-08-03 14:52 | Emergency (ER) | payer SELFPAY | END 2022-08-03 15:55 | disposition left against medical advice (07) | LOC: ERS 14:52 | DX: M25.572 Pain in left ankle and joints of left foot (principal); Y93.89 Activity, other specified ==